=== PATIENT | female | born 1975 ===

== ENCOUNTER 2020-06-01 11:54 | Emergency (ER) | payer SELFPAY ==
[~2020-06-01] VITALS: Ht 172.7 cm; Wt 139.2 kg
[2020-06-01 11:56] VITALS: BP 153/97
--- NOTE | 2020-06-01 14:14 | NUR ---
MARGA RN: CALLED PT NO ANSWER
--- NOTE | 2020-06-01 14:21 | NUR ---
MARGA RN: CALLED PT NO ANSWER
--- NOTE | 2020-06-01 14:27 | NUR ---
CALLED PT NO ANSWER
== END 2020-06-01 14:51 | disposition left against medical advice (07) ==
LOC: ED 14:30
DX: G89.29 Other chronic pain (principal); M79.672 Pain in left foot; M79.671 Pain in right foot
CPT/HCPCS: 99281; 99283